=== PATIENT | female | born 1970 | race Caucasian/White ===

== ENCOUNTER → 2024-08-11 08:15 | Outpatient (REF) | payer BC, SELFPAY | LOC: WDC 08:15 | PROVIDERS: ATTENDING PHYSICIAN Internal Medicine | DX: Z12.31 Encounter for screening mammogram for malignant neoplasm of breast (principal) | CPT/HCPCS: 77063; 77067 ==

== ENCOUNTER → 2024-09-08 10:24 | Outpatient (REF) | payer BC, SELFPAY | LOC: RCS 10:24 | PROVIDERS: ATTENDING PHYSICIAN Internal Medicine | DX: R00.2 Palpitations (principal); I10 Essential (primary) hypertension | CPT/HCPCS: 93225; 93226 ==

== ENCOUNTER → 2024-09-12 13:58 | Outpatient (REF) | payer BC, SELFPAY | LOC: RAD 13:58 | PROVIDERS: ATTENDING PHYSICIAN Internal Medicine | DX: R91.8 Other nonspecific abnormal finding of lung field (principal) | CPT/HCPCS: 71260; Q9967 ==

== ENCOUNTER → 2024-10-11 16:13 | Outpatient (REF) | payer BC, SELFPAY | LOC: RAD 16:13 | PROVIDERS: ATTENDING PHYSICIAN Nurse Practitioner Family; FAMILY PHYSICIAN Internal Medicine | DX: N95.0 Postmenopausal bleeding (principal) | CPT/HCPCS: 76830; 76856 ==

== ENCOUNTER → 2024-10-19 11:39 | Outpatient (REF) | payer BC, SELFPAY | LOC: RCS 11:39 | PROVIDERS: ATTENDING PHYSICIAN Internal Medicine | DX: R00.2 Palpitations (principal); I10 Essential (primary) hypertension | CPT/HCPCS: 93225; 93226 ==

== ENCOUNTER → 2025-01-12 12:45 | Outpatient (REF) | payer BC, SELFPAY | LOC: CLAB 12:45 | PROVIDERS: ATTENDING PHYSICIAN Obstetrics & Gynecology Gynecology | DX: N95.0 Postmenopausal bleeding (principal) | CPT/HCPCS: 88305 ==

== ENCOUNTER → 2025-08-17 07:51 | Outpatient (REF) | payer BC, SELFPAY | LOC: WDC 07:51 | PROVIDERS: ATTENDING PHYSICIAN Internal Medicine | DX: Z12.31 Encounter for screening mammogram for malignant neoplasm of breast (principal) | CPT/HCPCS: 77063; 77067 ==